=== PATIENT | female | born 1960 | race Caucasian/White ===

== ENCOUNTER 2017-05-04 14:01 | Emergency (ER) | payer BC, OTHER ==
[2017-05-04 15:27] VITALS: BP 112/75
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
--- NOTE | 2017-05-04 16:41 | RAD ---
INDICATION: Cough for one month. Fever. Asthma. COMPARISON: June 29, 2016 TECHNIQUE: Dual energy PA and routine lateral views of the chest were obtained. REPORT: Elevated lung volumes with increased AP thoracic diameter. Mild linear subsegmental atelectasis at the anterior segment of the RIGHT upper lobe increased over the prior exam. The lungs and pleural spaces are otherwise clear. The heart, pulmonary vasculature, and mediastinal contours are unremarkable. Dorsal spine fixation rods noted. IMPRESSION: Stigmata of probable chronic obstructive pulmonary disease. Mild linear subsegmental atelectasis at the RIGHT upper lobe. No radiographic evidence for pneumonia.
== END 2017-05-04 16:52 | disposition home or self-care (01) ==
LOC: UCCORT 14:01
DX: J20.9 Acute bronchitis, unspecified (principal); H65.90 Unspecified nonsuppurative otitis media, unspecified ear; Z88.0 Allergy status to penicillin
CPT/HCPCS: 71020; 99212; G0463